=== PATIENT | female | born 1950 | race Caucasian/White ===

== ENCOUNTER 2018-01-02 10:11 | Outpatient (CLI) | payer OTHER | END 2018-01-02 10:14 | disposition home or self-care (01) | LOC: NUCLEAR 10:11 | DX: M81.0 Age-related osteoporosis without current pathological fracture (principal); M85.88 Other specified disorders of bone density and structure, other site ==

== ENCOUNTER → 2018-01-27 | Outpatient (CLI) | payer OTHER | END | disposition home or self-care (01) | LOC: LAB 16:31 | DX: I15.8 Other secondary hypertension (principal); I10 Essential (primary) hypertension ==

== ENCOUNTER → 2018-01-30 07:02 | Outpatient (CLI) | payer OTHER | END | disposition home or self-care (01) | LOC: LAB 07:02 | DX: E11.39 Type 2 diabetes mellitus with other diabetic ophthalmic complication (principal); I15.8 Other secondary hypertension; D68.32 Hemorrhagic disorder due to extrinsic circulating anticoagulants; D69.8 Other specified hemorrhagic conditions ==

== ENCOUNTER 2018-01-31 11:31 | Outpatient (CLI) | payer OTHER | END 2018-01-31 11:41 | disposition home or self-care (01) | LOC: EKG 11:31 | DX: Z01.810 Encounter for preprocedural cardiovascular examination (principal) ==

== ENCOUNTER 2018-03-08 10:08 | Outpatient (CLI) | payer OTHER | END 2018-03-08 10:28 | disposition home or self-care (01) | LOC: RX STUDY 10:08 | DX: R13.14 Dysphagia, pharyngoesophageal phase (principal) ==

== ENCOUNTER 2018-03-10 09:49 | Outpatient (CLI) | payer OTHER | END 2018-03-10 10:04 | disposition home or self-care (01) | LOC: MRI 09:49 | DX: M50.10 Cervical disc disorder with radiculopathy, unspecified cervical region (principal) | CPT/HCPCS: 72141 ==

== ENCOUNTER → 2018-04-19 06:38 | Outpatient (CLI) | payer OTHER | END | disposition home or self-care (01) | LOC: LAB 06:38 | DX: I10 Essential (primary) hypertension (principal) ==

== ENCOUNTER 2019-01-29 14:40 | Outpatient (CLI) | payer OTHER | END 2019-01-29 14:42 | disposition home or self-care (01) | LOC: MAMO-SONO 14:40 | DX: Z12.31 Encounter for screening mammogram for malignant neoplasm of breast (principal); Z87.898 Personal history of other specified conditions; N64.89 Other specified disorders of breast ==

== ENCOUNTER 2019-01-31 08:25 | Outpatient (CLI) | payer OTHER | END 2019-01-31 08:32 | disposition home or self-care (01) | LOC: RAD 08:25 | DX: R07.89 Other chest pain (principal) ==

== ENCOUNTER 2019-08-09 06:37 | Outpatient (CLI) | payer OTHER | END 2019-08-09 07:27 | disposition home or self-care (01) | LOC: LAB 06:37 | DX: E03.8 Other specified hypothyroidism (principal); E78.00 Pure hypercholesterolemia, unspecified; D51.8 Other vitamin B12 deficiency anemias; M81.0 Age-related osteoporosis without current pathological fracture ==

== ENCOUNTER → 2019-12-06 | Outpatient (CLI) | payer OTHER | END | disposition home or self-care (01) | LOC: MRI 08:15 | DX: M54.12 Radiculopathy, cervical region (principal); M43.02 Spondylolysis, cervical region; M19.042 Primary osteoarthritis, left hand | CPT/HCPCS: 72141 ==

== ENCOUNTER 2019-12-12 15:40 | Outpatient (CLI) | payer OTHER | END 2019-12-12 15:46 | disposition home or self-care (01) | LOC: LAB 15:40 | DX: K29.41 Chronic atrophic gastritis with bleeding (principal) ==

== ENCOUNTER 2020-07-28 06:26 | Outpatient (CLI) | payer OTHER | END 2020-07-28 06:37 | disposition home or self-care (01) | LOC: LAB 06:26 | DX: I10 Essential (primary) hypertension (principal) ==